=== PATIENT | female | born 2000 | race Two or more races ===

== ENCOUNTER 2022-10-14 11:44 | Emergency (ER) | payer MEDICAID, OTHER ==
[~2022-10-14] VITALS: Ht 160 cm; Wt 73.0 kg
[2022-10-14 12:53] LABS: Basophils # (auto) 0.1 10 ^3/uL (0-0.2); Basophils % (auto) 0.4 % (0.0-2.0); Eosinophils # (auto) 0 10 ^3/uL (0-0.8); Hematocrit 38.9 % (36.0-46.0); Hemoglobin 12.9 g/dL (12.2-16.2); Lymphocytes % (auto) 7.1 % (10.0-50.0); Mean Corpuscular Hemoglobin 28.1 pg (28.0-32.0); Mean Corpuscular Hgb Conc. 33.1 g/dL (32.0-36.0); Mean Corpuscular Volume 84.9 fL (80.0-100.0); Monocytes # (auto) 0.2 10 ^3/uL (0-1.3); Monocytes % (auto) 1.4 % (0.0-12.0); Neutrophils # (auto) 12.5 10 ^3/uL (1.6-8.6); Neutrophils % (auto) 91.1 % (37.0-80.0); Red Blood Cells 4.58 10^6/uL (4.0-5.20); Red Cell Distribution Width 16.7 % (11.8-14.3); White Blood Cell 13.7 10^3/uL (4.4-10.8)
[2022-10-14 13:15] LABS: Albumin 3.5 g/dL (3.4-5.0); Potassium 3.3 mmol/L (3.5-5.1)
[2022-10-14 13:17] LABS: BUN/Creatinine Ratio 22.9 (10.0-20.0)
[2022-10-14 13:20] LABS: Bilirubin, Total 0.5 mg/dL (0.2-1.0); Total Protein 7.4 g/dL (6.4-8.2)
[2022-10-14] MEDS ORDERED: POTASSIUM EFFERVESENT TAB 25 MEQ PO ONE (13:30)
[2022-10-14 13:45] VITALS: BP 112/49; PULSE 75; RESP 17; TEMP 98.1; O2SAT 98
[2022-10-14 14:29] LABS: Urine Bacteria FEW /hpf (None Seen); Urine Blood Negative /uL (Negative); Urine Clarity HAZY (Clear); Urine Color Yellow (Yellow); Urine Protein, UAD 1+ (Negative); Urine Specific Gravity 1.027 (1.001-1.035); Urine Urobilinogen Normal (Negative); Urine WBC 2 /hpf (0 - 5)
== END 2022-10-14 14:50 | disposition home or self-care (01) ==
LOC: EDBD 11:44 → ER 11:44
DX: O26.892 Other specified pregnancy related conditions, second trimester (principal); E87.6 Hypokalemia; R10.13 Epigastric pain; R10.2 Pelvic and perineal pain; Z3A.14 14 weeks gestation of pregnancy
CPT/HCPCS: 36415; 76705; 76805; 80053; 81001; 83690; 84702; 85025